=== PATIENT | male | born 1955 | race Caucasian/White ===

== ENCOUNTER 2023-03-24 07:21 | Day surgery (SDC) | payer MEDICARE, OTHER ==
[~2023-03-24] VITALS: Ht 170.2 cm; Wt 81.7 kg
[~2023-03-24 07:21] MED LIST: SODIUM CHLORIDE 0.9% 1,000 ML IV ONE; SODIUM CHLORIDE 0.9% 1,000 ML ONE
[2023-03-24] MEDS ORDERED: LIDOCAINE 4% 50 ML SOLUTION TP ONE (07:22)
[2023-03-24] MEDS ORDERED: BENZOCAINE 20% 50 MCG/SPRAY 57 GM TP ONE (07:22)
[2023-03-24] MEDS ORDERED: LIDOCAINE 2% 11 ML JELLY TP ONE (07:22)
[2023-03-24] MEDS ORDERED: METO25 PO ×2 (07:54→08:00)
[2023-03-24] MEDS ORDERED: METF-1211 PO (07:56)
[2023-03-24] MEDS ORDERED: LOSA-382 PO (07:57)
[2023-03-24] MEDS ORDERED: POTA8TAB71 PO (07:58)
[2023-03-24] MEDS ORDERED: ASPI81TA87 PO (07:59)
[2023-03-24] MEDS ORDERED: ALLO-45 PO (07:59)
[2023-03-24] MEDS ORDERED: HYDR25TA2 PO (08:00)
[2023-03-24] MEDS ORDERED: MIDAZOLAM HCL 2 MG/2 ML VIAL ONE (08:02)
[2023-03-24] MEDS ORDERED: ATOR40TA28 PO (08:02)
[2023-03-24] MEDS ORDERED: FentaNYL CITRATE PF 100 MCG/2 ML VIAL ONE (08:02)
[2023-03-24] MEDS ORDERED: XALA2.5OS OS (08:03)
[2023-03-24] MEDS ORDERED: ALEN70TA65 PO (08:04)
[2023-03-24] MEDS ORDERED: MONT-35 PO (08:07)
[2023-03-24] MEDS ORDERED: FAMO20 PO (08:08)
[2023-03-24 08:41] LABS: GLUCOMETER DEV NAME(LOC) SDS.
[2023-03-24 09:55] VITALS: PULSE 71; RESP 15; O2SAT 100
[2023-03-24] MEDS ORDERED: MethylPREDNISolone SOD SUCC 125 MG/2 ML VIAL ONE (09:58)
[2023-03-24] MEDS ORDERED: MethylPREDNISolone SOD SUCC 125 MG/2 ML VIAL IVP ONE (10:15)
== END 2023-03-24 11:35 | disposition home or self-care (01) ==
LOC: SURGERY 07:21
PROVIDERS: ATTEND Internal Medicine Critical Care Medicine
DX: J38.4 Edema of larynx (principal); B37.0 Candidal stomatitis; Z98.890 Other specified postprocedural states; Z79.899 Other long term (current) drug therapy
CPT/HCPCS: 31623; 88112; 82962; 87206; 87101; 87220; 87070; 87015; 31624; 71045; J3010; J2250; J2930; Q9967; J7030; Z7610